=== PATIENT | female | born 1935 | race Caucasian/White ===

== ENCOUNTER → 2019-07-13 | Outpatient (CLI) | payer OTHER ==
[~2019-07-13] MED LIST: ASPI81CH PO; ATOR10; Colace100 MG PO; HYDCHL12.5 PO; LEVSOD100 PO; LEVSOD50 PO; METO50 PO; NIAC500ER PO; Norco 5-325 Ta1 EACH PO; PROACE100 PO; UBID10 PO; VALS80 PO; VALSARTAN-HCTZ1 EACH PO; VITAMINS
[2019-07-14 13:07] LABS: HPV 16 Negative (Negative); HPV 18 Negative (Negative); HPV OTHER HR TYPES Negative (Negative)
== END | disposition home or self-care (01) ==
LOC: LAB SHORT 13:08 → LAB 13:08
PROVIDERS: Nurse Practitioner Women's Health
DX: Z12.72 Encounter for screening for malignant neoplasm of vagina (principal); Z91.89 Other specified personal risk factors, not elsewhere classified
CPT/HCPCS: 87624; G0123

== ENCOUNTER → 2020-01-13 | Outpatient (CLI) | payer MEDICARE, OTHER | END | disposition home or self-care (01) | LOC: PLD 15:21 → LAB SHORT 15:21 | DX: D48.5 Neoplasm of uncertain behavior of skin (principal) | CPT/HCPCS: 88305 ==

== ENCOUNTER → 2020-12-07 | Outpatient (CLI) | payer MEDICARE, OTHER | END | disposition home or self-care (01) | LOC: LAB SHORT 15:16 → PLD 15:16 | DX: D48.5 Neoplasm of uncertain behavior of skin (principal) | CPT/HCPCS: 88305 ==

== ENCOUNTER → 2023-01-30 | Outpatient (CLI) | payer OTHER | END | disposition home or self-care (01) | LOC: LAB SHORT 14:15 → LAB 14:15 | DX: L01.01 Non-bullous impetigo (principal) | CPT/HCPCS: 87070; 87077; 87186; 87205 ==